=== PATIENT | female | born 1950 | race Hispanic/Latino ===

== ENCOUNTER 2018-06-05 02:26 | Emergency (ER) | payer MEDICARE ==
[2018-06-05 02:47] LABS: EOSINOPHILS % (AUTO) 7.7 % (0.0-8.0); HEMATOCRIT 28.1 % (36-48); LYMPHOCYTES % (AUTO) 28.2 % (21.0-51.0); MEAN CORPUSCULAR HEMOGLOBIN 26.5 pg (27.0-33.0); MEAN CORPUSCULAR VOLUME 80.4 fL (79-99); MONOCYTES % (AUTO) 10.8 % (3.0-13.0); NEUTROPHILS % (AUTO) 52.3 % (40.0-77.0); NUCLEATED RED BLOOD CELLS 0.1 % (0.0-0.19); PLATELET COUNT (AUTO) 241 K/uL (130-400); RED BLOOD CELL COUNT(AUTO) 3.49 MIL/uL (4.00-5.50); RED CELL DISTRIBUTION WIDTH 15.6 % (11.0-15.5); WHITE BLOOD COUNT (AUTO) 5.5 K/uL (4.8-10.8)
[2018-06-05 03:01] LABS: INR 0.95 (0.85-1.15)
[2018-06-05 03:18] LABS: POTASSIUM 3.2 mmol/L (3.5-5.1)
[2018-06-05 03:23] LABS: ALBUMIN 3.2 g/dL (3.5-5.0); BILIRUBIN,TOTAL 0.2 mg/dL (0.2-1.0); TOTAL PROTEIN, SERUM 7.1 g/dL (6.0-8.3)
[2018-06-05] MEDS ORDERED: IPRATROPIUM/ALBUTEROL SULFATE 3 ML SOLUTION IH ONE (03:37)
[2018-06-05] MEDS ORDERED: IOHEXOL-350 50ML VIAL IV ONE (04:59)
[2018-06-05] MEDS ORDERED: METHYLPREDNISOLONE SOD SUCC 125MG/2ML VIAL ONE (06:15)
== END 2018-06-05 06:57 | disposition home or self-care (01) ==
LOC: EDH 02:26
DX: J98.01 Acute bronchospasm (principal); E78.5 Hyperlipidemia, unspecified; I10 Essential (primary) hypertension; M19.90 Unspecified osteoarthritis, unspecified site
CPT/HCPCS: 36415; 71046; 71270; 80053; 83605; 84484; 85025; 85610; 85730; 86615 ×3; 87071; 87205; 87804 ×2; 87880; 93005; 94640; 96374; 99291; J2930; Q9967

== ENCOUNTER 2019-08-13 20:30 | Emergency (ER) | payer MEDICARE ==
[~2019-08-13 20:30] MED LIST: ALBUHFA IH; BUDE10.2 IH; DILT240C46 PO; ESOM40CA54 PO; FLUT16H NASAL; PRED20TA3 PO; SIMV-46 PO
[2019-08-13] MEDS ORDERED: OXYMETAZOLINE HCL SPRAY 15 ML BOTTLE ONE (21:41)
== END 2019-08-13 23:11 | disposition home or self-care (01) ==
LOC: EDH 20:30
DX: R04.0 Epistaxis (principal); I10 Essential (primary) hypertension; K21.9 Gastro-esophageal reflux disease without esophagitis; E78.5 Hyperlipidemia, unspecified; M19.90 Unspecified osteoarthritis, unspecified site; Z79.899 Other long term (current) drug therapy; Z90.710 Acquired absence of both cervix and uterus; Z85.038 Personal history of other malignant neoplasm of large intestine
CPT/HCPCS: 93005